=== PATIENT | female | born 1945 | race Caucasian/White ===

== ENCOUNTER 2018-08-21 09:41 | Day surgery (SDC) | payer OTHER ==
[~2018-08-21] VITALS: Ht 162.6 cm; Wt 53.1 kg
[~2018-08-21 09:41] MED LIST: ACET500; ASCO500 PO; Acetaminophen325 M1 PO; Antivert25 MG PO; Ativan0.5 MG PO; CALCIUM + D3 E1 EACH PO; Lopressor 25 mg25 MG PO; MOTION RELIEF25 MG PO; MULVITMIND PO; Motion Sickness25 M1 PO; OMEP20ER PO; Slow Release I160 MG PO; Zofran Odt4 MG SL
== END 2018-08-21 11:53 | disposition home or self-care (01) ==
LOC: ORSCSDS 09:41
PROVIDERS: Ophthalmology
PROC: 08RJ3JZ Replacement of Right Lens with Synthetic Substitute, Percutaneous Approach (ICD-10-PCS; principal; 2018-08-21 11:00)
DX: H25.11 Age-related nuclear cataract, right eye (principal)
CPT/HCPCS: J2001; J2250; J3010; J7120; V2632